=== PATIENT | female | born 1960 | race Caucasian/White ===

== ENCOUNTER 2021-03-11 20:36 | Emergency (ER) | payer OTHER ==
[~2021-03-11 20:36] MED LIST: ASPIRIN EC81 MG PO; ATARAX25 MG PO; FEXMID7.5 MG PO; LEVAQUIN500 MG PO; MOBIC7.5 MG PO; NORVASC5 MG PO; PAXIL20 MG PO; PEPCID AC20 MG PO; PREDNISONE 10MG10 MG PO; VENTOLIN HFA IN18 GM INH
[2021-03-11] MEDS ORDERED: CYCLOBENZAPRINE10 MG PO (22:26)
[2021-03-11] MEDS ORDERED: HYDROCODON-ACE1 EAC2 PO (22:26)
== END 2021-03-11 23:03 | disposition home or self-care (01) ==
LOC: FER 20:36
DX: R51.9 Headache, unspecified (principal); M54.2 Cervicalgia; I10 Essential (primary) hypertension; Z86.73 Personal history of transient ischemic attack (TIA), and cerebral infarction without residual deficits; V43.52XA Car driver injured in collision with other type car in traffic accident, initial encounter; Y92.410 Unspecified street and highway as the place of occurrence of the external cause
CPT/HCPCS: 70450; 72125